=== PATIENT | female | born 1955 | race Caucasian/White ===

== ENCOUNTER 2024-07-24 05:57 | Day surgery (SDC) | payer MEDICARE, OTHER, SELFPAY ==
--- NOTE | 2024-07-11 14:57 | PAT.ANE_ITS ---
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 When Was Last Pacemaker Check QUESTION #4 FULL TEXT: You/Your Family Experience fever (hyperthermia) with Anesthesia Last Oral Intake Last Oral intake: Last Oral Intake NPO since Meds taken in AM with sips of water? Meds patient instructed to take am of surgery PONV PONV - discharging machine operator: PONV - discharging machine operator Female Yes 07/10/24 13:56 HX of Motion Sickness No 07/10/24 13:56 HX of N/V After Surgery No 07/10/24 13:56 Non-Smoker Yes 07/10/24 13:56 Duration of Surgery greater Yes 07/10/24 13:56 than 60 minutes Number of Risk Factors 3 07/10/24 13:56 PONV Score Moderate Risk 07/10/24 13:56 Height & Weight Height & Weight: Anesthesia: Height & Weight Height 5 ft 5 in 07/02/24 10:54 Respiratory Assessment Respiratory Assessment - discharging machine operator: Respiratory Tract Infection Hx - discharging machine operator Hx Respiratory Tract Infection No 07/10/24 13:56 STOP Sleep Apnea STOP Sleep Apnea - discharging machine operator: STOP Sleep Apnea - discharging machine operator Hx Hypertension Yes: NO MED FOR 6 MONTHS 07/10/24 13:56 Hx Sleep Apnea No 07/10/24 13:56 CPAP BIPAP Do you snore loudly (louder No 07/10/24 13:56 than talking or can be heard Do you often feel tired/ No 07/10/24 13:56 fatigued/ sleepy during daytime? Has anyone observed you stop No 07/10/24 13:56 breathing during sleep? STOP Results Negative 07/10/24 13:56 QUESTION #5 FULL TEXT : Do you snore loudly (louder than talking or can be heard through closed doors)? 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 Specify any problems Hx of Preganancy in last 3 No 07/10/24 13:56 Months Nurse Filling Out Transfusion DSCHRIBER 07/10/24 13:56 & Questions: Date: 07/10/24 07/10/24 13:56 Time: 13:58 07/10/24 13:56 Patient unable to answer at this time (ie. confused, unrespo /Reproduction History /Reproductive History - discharging machine operator: /Reproductive Hx- discharging machine operator Hx Now No 07/10/24 13:56 Gestational Age (in weeks): EDC: Hx Hx Para Hx Section SAB No 07/10/24 13:56 FORMERLY [facility], 1928–1983 Medical History (Updated 07/10/24 @ 14:06 by Neelam Khan) Wears glasses Loss of hearing Wears contact lenses Post-menopausal Cancer Low iron Injury of head and neck Difficulty swallowing Non-smoker History of stress test Polycystic ovary Hypertension History of depression History of cyst of breast Home Medications ?Medication ?Instructions ?Recorded ?Last Taken ?Type biotin 5 mg capsule 5 mg PO QDAY 06/03/24 Unknow n History cholecalciferol (vitamin D3) 10 10 mcg PO QDAY 5 Unknown History mcg (400 unit) capsule ferrous sulfate 325 mg (65 mg 325 mg PO QDAY 06/03/24 Unknown History iron) tablet (Feosol) mecobalamin (vitamin B12) 1,000 1,000 mcg PO QDAY 05/24 05/17 Unknown History mcg chewable tablet (B12 Active) multivitamin (Daily Multi-Vitamin 1 tab PO QAM 5 Unknown History tablet) zinc acetate 25 mg (zinc) capsule 25 mg PO QDAY Unknown History (Galzin) ascorbic acid (vitamin C) 1,000 mg 1,000 mg PO DAILY 0 07/10/24 Unknown History tablet,extended release (C Complex) Allergy/AdvReac Type Severity Reaction Status Date / Time amoxicillin (From Augmentin) Allergy Mild Nausea/Vom/ Verified 07/10/24 13:54 Diarrhea bee venom protein (honey Allergy Mild Hives Verified 07/10/24 13:54 bee) (bees) clavulanic acid (From Allergy Mild Nausea/Vom/ Verified 07/10/24 13:54 Augmentin) Diarrhea topiramate (From Topamax) Allergy Mild confusion Verified 07/10/24 13:54 Family History (Updated 06/03/24 @ 10:07 by Natty West) Mother Arthritis Hypertension High cholesterol CVA (cerebral vascular accident) Depression Grandmother Breast cancer Father Heart disease Hypertension Brother CVA (cerebral vascular accident) Cancer Hypertension Surgical History (Updated 07/10/24 @ 14:06 by Neelam Khan) Hx of fusion of cervical spine Hx of hysterectomy History of tubal ligation History of bladder repair surgery H/O gastric bypass History of rectal surgery History of breast biopsy Social History (Updated 06/03/24 @ 10:05 by Natty West) Smoking Status: Never smoker substance use type: does not use additional social history: pt denies vaping, denies marijuana use, denies edibles, denies aspirin and 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
--- NOTE | 2024-07-15 12:24 | EKG12_ITS ---
Test Reason : PREOP Blood Pressure : */* mmHG Vent. Rate : 67 BPM Atrial Rate : 67 BPM P-R Int : 158 ms QRS Dur : 80 ms QT Int : 394 ms P-R-T Axes : 69 82 64 degrees QTcB Int : 416 ms Normal sinus rhythm Normal ECG Confirmed by ANGELO GUZMAN, VIMAL ([id number]), assistant production editor JOLENE ALDRICH ([id number]) on 07/16/2024 7:20:44 AM Referred By: Elma Gleason Confirmed By: VIMAL STEPHENS MD
[2024-07-24] VITALS (11 sets, daily range): BP systolic 81–123; BP diastolic 51–73; PULSE 60–69; RESP 10–17; TEMP 36.1–36.7; O2SAT 92–100; BMI 28.2
[2024-07-24] MEDS: 0.9% Normal Saline (1000mL) 1,000 ML 15 ML IV (06:35)
--- NOTE | 2024-07-24 06:41 | PCM.PRE.AN2 ---
ASA Classification* ASA Classification ASA Classification: 2 Assessment & Plan Anesthesia* Anesthesia Assessment Anesthesia Assessment: Discussed sedation and/or anesthesia options, risks, benefits, and alternatives with patient/parents/legal guardian/POA. Questions invited. The patient/parents/legal guardian/POA seems to understand and agrees to proceed with anesthesia plan. Reviewed the physical assessment, medical history, allergy history and patient home medications list prior to surgery/procedure/anesthetic and documented any changes. Performed airway and anesthesia risk assessments. Anesthesia Type Anesthesia Type: General History Source History Obtained from:: Patient and Chart Anesthesia Focused Assessment* Temperature: 97.6 F Pulse Rate: 60 Blood Pressure: 123/73 Respiratory Rate: 17 Pulse Ox: 100 Oxygen Delivery Method: Room Air Airway Assessment Mouth opens: >3 cm Mallampati Score: I Teeth Condition: Caps/Crowns (Patient has several crowns. 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 When Was Last Pacemaker Check QUESTION #4 FULL TEXT: You/Your Family Experience fever (hyperthermia) with Anesthesia Last Oral Intake Last Oral intake: Last Oral Intake NPO since Meds taken in AM with sips of water? Meds patient instructed to take am of surgery Any additional information?: Yes NPO since: 00:00 Meds taken in AM with sips of water?: No PONV PONV - java lead architect: PONV - java lead architect Female Yes 07/10/24 13:56 HX of Motion Sickness No 07/10/24 13:56 HX of N/V After Surgery No 07/10/24 13:56 Non-Smoker Yes 07/10/24 13:56 Duration of Surgery greater Yes 07/10/24 13:56 than 60 minutes Number of Risk Factors 3 07/10/24 13:56 PONV Score Moderate Risk 07/10/24 13:56 Height & Weight Height & Weight: Anesthesia: Height & Weight Height 5 ft 5 in 07/16/24 11:26 Respiratory Assessment Respiratory Assessment - java lead architect: Respiratory Tract Infection Hx - java lead architect Hx Respiratory Tract Infection No 07/10/24 13:56 Any additional information?: Yes Hx Respiratory Tract Infection: Yes (Patient has environmental allergies. Postnasal drip currently.) STOP Sleep Apnea STOP Sleep Apnea - java lead architect: STOP Sleep Apnea - java lead architect Hx Hypertension Yes: NO MED FOR 6 MONTHS 07/10/24 13:56 Hx Sleep Apnea No 07/10/24 13:56 CPAP BIPAP Do you snore loudly (louder No 07/10/24 13:56 than talking or can be heard Do you often feel tired/ No 07/10/24 13:56 fatigued/ sleepy during daytime? Has anyone observed you stop No 07/10/24 13:56 breathing during sleep? STOP Results Negative 07/10/24 13:56 QUESTION #5 FULL TEXT : Do you snore loudly (louder than talking or can be heard through closed doors)? 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 Specify any problems Hx of Preganancy in last 3 No 07/10/24 13:56 Months Nurse Filling Out Transfusion DSCHRIBER 07/10/24 13:56 & Questions: Date: 07/10/24 07/10/24 13:56 Time: 13:58 07/10/24 13:56 Patient unable to answer at this time (ie. confused, unrespo /Reproduction History /Reproductive History - java lead architect: /Reproductive Hx- java lead architect Hx Now No 07/10/24 13:56 Gestational Age (in weeks): EDC: Hx Hx Para Hx Section SAB No 07/10/24 13:56 Active Medications Active Medications: Current Medications Generic Name Dose Route Start Last Admin Trade Name Freq PRN Reason Stop Dose Admin Sodium Chloride 1,000 mls @ 15 mls/hr 07/24/24 06:10 07/24/24 06:35 IV 15 mls/hr .Q48H SHIVA Administration Clindamycin Phosphate 900 mg in 50 mls @ 75 mls/hr 07/24/24 07:00 Cleocin IV 07/24/24 07:39 PREOP ONE PFSH Medical History Wears glasses Loss of hearing Wears contact lenses Post-menopausal Cancer Low iron Injury of head and neck Difficulty swallowing Non-smoker History of stress test Polycystic ovary Hypertension History of depression History of cyst of breast Home Medications ?Medication ?Instructions ?Recorded ?Last Taken ?Type biotin 5 mg capsule 5 mg PO QDAY 06/03/24 07/23/24 History cholecalciferol (vitamin D3) 10 10 mcg PO QDAY 06/03/24 07/23/24 History mcg (400 unit) capsule ferrous sulfate 325 mg (65 mg 325 mg PO QDAY 06/03/24 07/23/24 History iron) tablet (Feosol) mecobalamin (vitamin B12) 1,000 1,000 mcg PO QDAY 06/03/24 07/23/24 History mcg chewable tablet (B12 Active) multivitamin (Daily Multi-Vitamin 1 tab PO QAM 06/03/24 Unknown History tablet) zinc acetate 25 mg (zinc) capsule 25 mg PO QDAY 06/03/24 07/23/24 History (Galzin) ascorbic acid (vitamin C) 1,000 mg 1,000 mg PO DAILY 07/10/24 07/23/24 History tablet,extended release (C Complex) cephalexin 500 mg capsule 500 mg PO BID #14 caps 07/16/24 07/23/24 Rx Allergy/AdvReac Type Severity Reaction Status Date / Time amoxicillin (From Augmentin) Allergy Mild Nausea/Vom/ Verified 07/24/24 06:34 Diarrhea bee venom protein (honey Allergy Mild Hives Verified 07/24/24 06:34 bee) (bees) clavulanic acid (From Allergy Mild Nausea/Vom/ Verified 07/24/24 06:34 Augmentin) Diarrhea topiramate (From Topamax) Allergy Mild confusion Verified 07/24/24 06:34 Family History Mother Arthritis Hypertension High cholesterol CVA (cerebral vascular accident) Depression Grandmother Breast cancer Father Heart disease Hypertension Brother CVA (cerebral vascular accident) Cancer Hypertension Surgical History Hx of fusion of cervical spine Hx of hysterectomy History of tubal ligation History of bladder repair surgery H/O gastric bypass History of rectal surgery History of breast biopsy Social History Smoking Status: Never smoker substance use type: does not use additional social history: pt denies vaping, denies marijuana use, denies edibles, denies aspirin and 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
--- NOTE | 2024-07-24 07:16 | PCM.HP.BLA ---
History and Physical Date of Admission: 07/24/24 Interim Note: There are no changes to the H&P dated 07/21/24. She presents with an abdominal panniculus. The pt presents for abdominal panniculectomy. She is marked in the pre-op area. An informed consent is obtained. Assessment & Plan Assessment/Plan (1) Intertrigo: (2) Atrophic skin: PLAN: Plan Pt for abdominal panniculectomy.
--- NOTE | 2024-07-24 07:30 | LES_PTH ---
PATIENT: EVERTON CALDWELL LOC: [facility] [place] U#:[id number] AGE/SX: 69/F ROOM: RE07/24/[address]: Dr. Elma Gleason MD : [id number] BED: DIS: 07/24/2024 SPEC #: [id number] RECD: 07/24/24 11:18 STATUS: KARSTEN MAC #: [id number] CASE: 07/24/24 07:[address]: Elma Gleason DEPT: SURGICAL PATHOLOGY RECD BY: Steffany Gilliam ENTERED: 07/24/24 14:00 SP TYPE: Lesion OTHR DR: Dr. Fabrizio Johnson MD Tissues: A - Skin of abdomen, NOS Procedures: Surgery Specimen Level IV HEADER OPERATION: Abdominal panniculectomy PRE-OP DIAGNOSIS: Intertrigo, atrophic skin TISSUE SUBMITTED: A- Abdominal lesion MICROSCOPIC DIAGNOSIS A. Skin, Abdomen, Lesion, Excision: - Cavernous hemangioma, benign. MICROSCOPIC DESCRIPTION Slides are reviewed. GROSS DESCRIPTION A. Received in formalin in a container labeled with the patient's name, date of , and abnormal lesion is an and oriented and elliptical skin excision measuring 0.9 x 0.3 cm with an excisional depth of 0.2 cm. The white-schaeffer epidermis is notable for a schaeffer-brown, wrinkled papule measuring 0.3 x 0.3 x 0.2 centimeters. The papule appears to abut the peripheral margin. The deep margin is inked green, and the specimen is quadrisected to reveal that the papule exhibits red, glistening surfaces that are confined to the epidermis. Submitted entirely as follows:A1. Tips, en faceA2. Midportion of specimen CPT:95386 [facility] 07-24-2024
[2024-07-24] MEDS: Clindamycin 900 MG/50 ML BAG 75 MG IV (07:38)
[2024-07-24] MEDS: Gentamicin 80 MG/2 ML Vial (08:00)
[2024-07-24] MEDS: Bupivacaine 0.25% 30 ML Vial (10:05)
--- NOTE | 2024-07-24 10:15 | DCINST_ITS ---
Discharge Instructions Dressing / Incision Additional Dressing/Incision Instructions:: Follow the instructions given in the office. Follow Up Care Please Follow Up With: Elma Gleason MD When: Next week Test Results: Test results from this visit will be discussed in further detail at your follow- up appointment, if applicable. Discharge Plan Admission Attending Provider: Elma Gleason Primary Care Provider: Fabrizio Johnson Instructions Print Language: [place] Discharge Orders/Prescriptions Prescriptions: No Action multivitamin [Daily Multi-Vitamin] Tablet 1 tab PO QAM ferrous sulfate [Feosol] 325 mg (65 mg iron) tablet 325 mg PO QDAY biotin 5 mg capsule 5 mg PO QDAY cholecalciferol (vitamin D3) 10 mcg (400 unit) capsule 10 mcg PO QDAY mecobalamin (vitamin B12) [B12 Active] 1,000 mcg tablet,chewable 1,000 mcg PO QDAY Galzin 25 mg (zinc) capsule 25 mg PO QDAY cephalexin 500 mg capsule 500 mg PO BID Qty: 14 0RF C Complex 1,000 mg tablet extended release 1,000 mg PO DAILY Disposition Disposition (needs filled in before D/C Order can be placed): Home, Self Care
--- NOTE | 2024-07-24 10:18 | PCM.OPRPT ---
Problems Associated Problem List Diagnoses (1) Intertrigo: (2) Atrophic skin: Operative Report (Standard) Operative Information Date of Procedure: 07/24/24 Pre-Operative Diagnosis: Intertrigo, atrophic skin, status post gastric bypass and associated weight loss Post-Operative Diagnosis: Same Surgery/Procedure Performed: Panniculectomy (992 g removal) audit spec: Yes Vendor Management Specialist: Yasemin Roe Tasks completed by director of first impressions: Closing and Retracting Type of Anesthesia: General RN Documented Start/Stop Times: Operation Date: 07/24/24 07:30 Case Time Into Pre-Op 07/24/24 06:08 Out of Pre-Op 07/24/24 07:20 Anesthesia Start 07/24/24 07:25 Into Room 07/24/24 07:25 Procedure Start 07/24/24 07:56 Procedure Start Time: 07:56 Procedure Stop Time: 10:14 Select all DRAINS/GRAFTS/IMPLANTS that apply: None Estimated Blood Loss: 25 cc Specimen collected: No Description of surgery: The patient presents with a history of intertrigo and panniculus status post gastric bypass. She presents for panniculectomy. The procedure been reviewed with the patient and informed consent was obtained. She is marked in the preop holding area prior to surgery. The patient is brought to the operating room and placed under general anesthesia in the supine position. Care is taken to pad all pressure points, apply sequential compression stockings, Pizarro catheter, and a warming blanket. The abdomen is prepped and draped in the usual sterile fashion. We initially began with incising the premarked incisions. This is taken down through the subcutaneous tissue until the abdominal fascia is identified. Dissection then carefully continued cephalad to the premarked excision margins. During the dissection, evidence of the a rolled piece of mesh in the suprapubic area was noted. This was not exposed and left covered by the existing soft tissue. The patient is then placed in a semi-Fowlers position and the tissue for removal is marked. This is then excised. The wound is irrigated with antibiotic solution and checked for meticulous hemostasis which is controlled with cautery. The incision margins are then approximated and tacked in place with skin clips. With a satisfactory appearance being noted, a few Vicryl sutures are used to replace some of the skin clips. The flap is then closed in 3 layers using a 3-0 STRATAFIX suture. Skin edges are approximated with a subcuticular suture. 1/4% plain Marcaine is injected along the incision. Incision is dressed with Xeroform, ABDs and taped in place. She is then placed in abdominal binder. The Pizarro catheter was removed at the conclusion of the case. She tolerated the procedure well and was taken to the recovery area in an awakening in stable condition. Needle and sponge counts are correct. Surgical Findings: As above Complications Complications: Yes Complication Details: Insufficient initial prep of the umbilicus which was reprepped during the procedure. Admit VTE Documentation VTE Mechan Device Prophylaxis: SCD's
--- NOTE | 2024-07-24 10:32 | PCM.POST.ANE ---
Anesthesia: Postop Eval I Current Vital Signs Temperature: 97 F Pulse Rate: 64 Blood Pressure: 94/55 Respiratory Rate: 10 Pulse Ox: 94 Oxygen Delivery Method: Venturi Mask Oxygen Flow Rate (L/min): 6 Assessment Airway patent: Yes Spontaneous unlabored respirations: Yes Mental status: Calm and Asleep nausea: No Vomiting: No Anesthesia Complication: No Fluid Hydration Crystalloid volume administer (ml): 1,600 Total IV fluid infused: 1,600 Progress Note Anesthesia document: Postop Eval 1 completed: Yes
[2024-07-24] MEDS: Acetaminophen 500 MG Tablet PO (11:55)
--- NOTE | 2024-07-24 13:47 | POSTOPAN2_ITS ---
Anesthesia Postop Eval I Sum Postop Eval Completion status Anesthesia document: Postop Eval 1 completed: Yes Anesthesia Postop Eval I Summary Anesthesia Postop Eval I Summary: Anesthesia Postop Eval I: Assessment Summary Airway patent Yes 07/24/24 10:33 [email or web address] Spontaneous unlabored Yes 07/24/24 10:33 ROUGE [email or web address] respirations Mental status Calm,Asleep 07/24/24 10:33 [email or web address] nausea No 07/24/24 10:33 ROUGE [email or web address] Vomiting No 07/24/24 10:33 ROUGE [email or web address] Anesthesia Postop Eval I: Fluid Summary Crystalloid volume administer 1,600 07/24/24 10:33 ROUGE [email or web address] (ml) Colloids volume administered ( ml) Blood Product volume administered (ml) Total IV fluid infused 1,600 07/24/24 10:33 ROUGE [email or web address] Anesthesia Postop Eval I: Summary Notes Anesthesia Complication No 07/24/24 10:33 ROUGE [email or web address] Anesthesia Complication Comment: Post-operative progress note Anesthesia: Postop Eval II Evaluation Mental status: Awake and Calm Pain Level: 0 nausea: No Vomiting: No Complications Anesthesia Complication: No
--- NOTE | 2024-07-24 13:47 | PCM.POSTANE2 ---
Anesthesia Postop Eval I Sum Postop Eval Completion status Anesthesia document: Postop Eval 1 completed: Yes Anesthesia Postop Eval I Summary Anesthesia Postop Eval I Summary: Anesthesia Postop Eval I: Assessment Summary Airway patent Yes 07/24/24 10:33 LINUX SUPPORT [email or web address] Spontaneous unlabored Yes 07/24/24 10:33 LINUX SUPPORT [email or web address].MDOT respirations Mental status Calm,Asleep 07/24/24 10:33 LINUX SUPPORT [email or web address] nausea No 07/24/24 10:33 LINUX SUPPORT [email or web address] Vomiting No 07/24/24 10:33 LINUX SUPPORT [email or web address] Anesthesia Postop Eval I: Fluid Summary Crystalloid volume administer 1,600 07/24/24 10:33 LINUX SUPPORT [email or web address].MDOT (ml) Colloids volume administered ( ml) Blood Product volume administered (ml) Total IV fluid infused 1,600 07/24/24 10:33 LINUX SUPPORT [email or web address] Anesthesia Postop Eval I: Summary Notes Anesthesia Complication No 07/24/24 10:33 LINUX SUPPORT [email or web address] Anesthesia Complication Comment: Post-operative progress note Anesthesia: Postop Eval II Evaluation Mental status: Awake and Calm Pain Level: 0 nausea: No Vomiting: No Complications Anesthesia Complication: No
== END 2024-07-24 14:28 | disposition home or self-care (01) ==
LOC: SDC 05:58 → AC 06:00
PROVIDERS: PCP Family Medicine; Referring Provider Plastic Surgery; Visit Provider Plastic Surgery
PROC: 0JB80ZZ Excision of Abdomen Subcutaneous Tissue and Fascia, Open Approach (ICD-10-PCS; CPT 15830; principal; 2024-07-24 07:15)
DX: L98.7 Excessive and redundant skin and subcutaneous tissue (principal); L30.4 Erythema intertrigo; D18.01 Hemangioma of skin and subcutaneous tissue; E65 Localized adiposity; Z98.84 Bariatric surgery status
CPT/HCPCS: 15830; 00802; 88305; 93005; J2405